=== PATIENT | female | born 1935 | race Caucasian/White ===

== ENCOUNTER → 2019-03-08 | Outpatient (CLI) | payer OTHER ==
[~2019-03-08] MED LIST: AMIO200T5 PO; ATOR20TA65 PO; DUONEB IH; EZET10TA48 PO; FERROUS SULFATE PO; FURO40TA5 PO; METO100T7 PO; MOME17N NS; OMEG1CAP31 PO; PANT40TA25 PO; POTA10TA14 PO; SPIR25TA PO; SYMB8060 IH; ZARO5 PO; [UNRECOGNIZED DRUG - OTHER] PO
== END | disposition home or self-care (01) ==
LOC: SHCH 13:16
PROVIDERS: ATTEND Internal Medicine Cardiovascular Disease
DX: I08.3 Combined rheumatic disorders of mitral, aortic and tricuspid valves (principal); I11.9 Hypertensive heart disease without heart failure; I65.23 Occlusion and stenosis of bilateral carotid arteries
CPT/HCPCS: 93306; 93880